=== PATIENT | male | born 1950 | race Caucasian/White ===

== ENCOUNTER → 2017-12-04 | Outpatient (CLI) | payer OTHER ==
[2017-12-04 10:10] LABS: BILIRUBIN,URINE NEGATIVE (NEG); CLARITY,URINE CLEAR; COLOR,URINE YELLOW; GLUCOSE,URINE NEGATIVE (NEG); NITRITE,URINE POSITIVE (NEG); PH,URINE 5.5; PROTEIN,URINE 100 mg/dL (NEG-TRACE); UROBILINOGEN,URINE 0.2 mg/dL (0.2 mg/dL)
[2017-12-04 10:50] LABS: BACTERIA,URINE MANY /HPF (0-FEW)
== END | disposition home or self-care (01) ==
LOC: SPEC 09:36
DX: Z46.6 Encounter for fitting and adjustment of urinary device (principal); I12.9 Hypertensive chronic kidney disease with stage 1 through stage 4 chronic kidney disease, or unspecified chronic kidney disease; N18.3 Chronic kidney disease, stage 3 (moderate); Z85.46 Personal history of malignant neoplasm of prostate
CPT/HCPCS: 81001; 87086

== ENCOUNTER 2018-04-16 20:47 | Emergency (ER) | payer OTHER, MEDICARE ==
[2018-04-16] MEDS: MORPHINE SULFATE 4 MG/ML DISP.SYRIN. IV (21:30)
[2018-04-16] MEDS: MORPHINE SULFATE 10 MG/ML VIAL. IV ×2 (22:28→23:42)
[2018-04-17] MEDS ORDERED: fentaNYL PF VIAL 100 MCG/2 ML VIAL (00:15)
[2018-04-17] MEDS: fentaNYL PF VIAL 100 MCG/2 ML VIAL IV (00:20)
[2018-04-17] MEDS ORDERED: fentaNYL PF VIAL 100 MCG/2 ML VIAL IV (00:30)
== END 2018-04-17 00:59 | disposition home or self-care (01) ==
LOC: ER 04-17 00:59
DX: M51.36 Other intervertebral disc degeneration, lumbar region (principal); Z85.038 Personal history of other malignant neoplasm of large intestine; W18.39XA Other fall on same level, initial encounter; Y93.89 Activity, other specified; Y99.8 Other external cause status; Y92.89 Other specified places as the place of occurrence of the external cause
CPT/HCPCS: 70450; 71250; 72125; 74176; 96374; 96375; 96376; 99284; J2060; J2270; J3010